=== PATIENT | male | born 1990 | race Two or more races ===

== ENCOUNTER 2024-11-04 00:49 | Inpatient (IN) | payer MEDICAID, OTHER ==
[~2024-11-04] VITALS: Ht 177.8 cm; Wt 104.3 kg
[2024-11-04] MEDS: LORazepam 2 MG/ML VIAL IM ONE (01:16)
[2024-11-04] MEDS: DiphenhydrAMINE HCL 50 MG/ML VIAL IM ONE (01:16)
[2024-11-04] MEDS: HALOPERIDOL LACTATE 5 MG/ML VIAL IM ONE (01:16)
[2024-11-04 02:31] LABS: COVID AG,FIA SOURCE NASAL SWAB
[2024-11-04 02:36] LABS: BASOPHILS % (AUTO) 0.6 % (0.0-2.0); EOSINOPHILS % (AUTO) 0.4 % (1.0-6.0); HEMOGLOBIN 15.4 g/dL (13.5-17.5); LYMPHOCYTES # (AUTO) 1.9 K/uL (1.0-4.8); LYMPHOCYTES % (AUTO) 13.2 % (22.0-44.0); MEAN CORPUSCULAR HEMOGLOBIN 29.6 pg (26.0-34.0); MEAN CORPUSCULAR HGB CONC 34.3 G/dL (31.0-37.0); MEAN CORPUSCULAR VOLUME 86 fL (80-100); MONOCYTES # (AUTO) 1.6 K/uL (0.1-1.0); MONOCYTES % (AUTO) 11.1 % (2.0-9.0); NEUTROPHILS # (AUTO) 10.6 K/uL (1.8-7.7); NEUTROPHILS % (AUTO) 74.7 % (40.0-70.0); PLATELET COUNT (AUTO) 293 K/uL (150-450); RED BLOOD CELL COUNT(AUTO) 5.21 MIL/uL (4.50-5.90); RED CELL DISTRIBUTION WIDTH 13.5 % (11.5-14.5); WHITE BLOOD COUNT (AUTO) 14.2 K/uL (4.5-11.0)
[2024-11-04 02:39] LABS: ANION GAP 10 mmol/L (8-16); CARBON DIOXIDE 26 mmol/L (22-29); CHLORIDE 103 mmol/L (98-107); CREATININE 0.91 mg/dL (0.60-1.30); GLOMERULAR FILTR. RATE CALC > 60 mL/min (>60); GLUCOSE,RANDOM 91 mg/dL (70-110); SODIUM SERUM 139 mmol/L (136-145); UREA NITROGEN, BLOOD 11 mg/dL (7-18)
[2024-11-04 02:41] LABS: SARS-COV2 (COVID) ANTIGEN,FIA Negative (Negative)
[2024-11-04 02:55] LABS: POTASSIUM 2.9 mmol/L (3.5-5.1)
[2024-11-04] MEDS: ChlorproMAZINE HCL 50 MG/2 ML AMP IM ONE (03:30)
[2024-11-04] MEDS: POTASSIUM CHLORIDE 40 MEQ in SODIUM CHLORIDE 0.9% 1,000 ML IV ONE (03:42)
[2024-11-04] MEDS ORDERED: haloperidoL 5 MG TABLET PO PRN (05:15)
[2024-11-04] MEDS ORDERED: LORazepam 2 MG TABLET PO PRN (05:15)
[2024-11-04 08:31] VITALS: O2SAT 97
[2024-11-04] MEDS: RisperiDONE 1 MG TABLET PO SCH (10:45)
[2024-11-04 12:15] VITALS: BP 128/70; PULSE 72; RESP 15; TEMP 98.2; O2SAT 100
[2024-11-04] MEDS: BACITRACIN 28 GM OINTMENT TP SCH (16:12)
[2024-11-04 20:22] VITALS: BP 103/68; PULSE 82; RESP 18; TEMP 98; O2SAT 99
[2024-11-05 20:53] VITALS: BP 105/65; PULSE 69; RESP 16; TEMP 98.1; O2SAT 96
[2024-11-06 08:44] VITALS: RESP 17
[2024-11-06 20:40] VITALS: BP 116/74; PULSE 68; RESP 16; TEMP 98.1; O2SAT 100
[2024-11-07 09:23] VITALS: RESP 18
[2024-11-07 20:38] VITALS: BP 111/66; PULSE 77; RESP 18; TEMP 97.5; O2SAT 99
[2024-11-07] MEDS: ZOLPIDEM TARTRATE 10 MG TABLET PO PRN (20:48)
[2024-11-08 09:52] VITALS: BP 98/53; PULSE 73; RESP 18; TEMP 97.5; O2SAT 99
[2024-11-08 10:15] LABS: APPEARANCE,URINE CLEAR (CLEAR); BILIRUBIN,URINE NEGATIVE (NEGATIVE); COLOR,URINE LIGHT YELLOW (YELLOW); GLUCOSE, URINE (UA) NEGATIVE (NEGATIVE); KETONES,URINE NEGATIVE (NEGATIVE); LEUKOCYTE ESTERASE ,URINE NEGATIVE (NEGATIVE); NITRATE,URINE NEGATIVE (NEGATIVE); OCCULT BLOOD,URINE NEGATIVE (NEGATIVE); PROTEIN,URINE NEGATIVE (NEGATIVE); SPECIFIC GRAVITIY, URINE 1.006 (1.003-1.030); UROBILINOGEN,URINE <=1.0 mg/dL (<=1.0)
[2024-11-08 10:36] LABS: ALCOHOL, URINE DRUG SCREEN NEGATIVE (NEGATIVE); AMPHET/METH SCREEN,URINE NEGATIVE (NEGATIVE); BARBITURATE SCREEN, URINE NEGATIVE (NEGATIVE); BENZODIAZEPINES SCREEN,URINE NEGATIVE (NEGATIVE); CANNABINOID SCREEN,URINE NEGATIVE (NEGATIVE); COCAINE SCREEN,URINE NEGATIVE (NEGATIVE); METHADONE SCREEN, URINE NEGATIVE (NEGATIVE); OPIATE SCREEN,URINE NEGATIVE (NEGATIVE); PHENCYCLIDINE SCREEN,URINE NEGATIVE (NEGATIVE)
[2024-11-08 21:53] VITALS: BP 123/69; PULSE 64; RESP 18; TEMP 99.8
[2024-11-09 11:48] VITALS: BP 117/67; PULSE 77; RESP 16; TEMP 97.9; O2SAT 100
[2024-11-09] MEDS ORDERED: RISP-31 PO (12:37)
== END 2024-11-09 16:45 | disposition home or self-care (01) | DRG 751 ==
LOC: EMS 00:53 → B3A 07:32
PROVIDERS: ADMIT Psychiatry & Neurology Psychiatry; ATTEND Psychiatry & Neurology Psychiatry
DX: F29 Unspecified psychosis not due to a substance or known physiological condition (principal); F25.9 Schizoaffective disorder, unspecified; D72.829 Elevated white blood cell count, unspecified; F41.9 Anxiety disorder, unspecified; S00.83XA Contusion of other part of head, initial encounter; F15.10 Other stimulant abuse, uncomplicated; G47.00 Insomnia, unspecified; Z20.822 Contact with and (suspected) exposure to COVID-19; Y04.0XXA Assault by unarmed brawl or fight, initial encounter; Y93.89 Activity, other specified; Y92.89 Other specified places as the place of occurrence of the external cause; Y99.8 Other external cause status; Z79.899 Other long term (current) drug therapy
CPT/HCPCS: 80048; 80307; 81003; 84132; 85025; 96372; 99285; G0480; J3230; J3480; J7030